=== PATIENT | female | born 1995 | race Caucasian/White ===

== ENCOUNTER 2017-02-25 15:53 | Inpatient (IN) ==
[2017-02-25] MEDS ORDERED: ONDANSETRON 4 MG/2 ML VIAL IV PRN ×2 (16:26→18:29)
[2017-02-25] MEDS ORDERED: HYDROmorphone 2 MG/1 ML VIAL IV PRN ×2 (16:26→18:29)
[2017-02-25] MEDS ORDERED: ACETAMINOPHEN 325 MG TABLET PO PRN (16:26)
--- NOTE | 2017-02-25 16:33 | General Surg History&Physical ---
Assessment and Plan - Time spent with patient Time spent with patient: Less than 30 minutes (1) Appendicitis Status: Acute Assessment and plan: Impression: Acute appendicitis with localized peritonitis. Plan: Laparoscopic appendectomy. Preoperative antibiotic Qualifiers: Appendicitis type: acute appendicitis Acute appendicitis type: with localized peritonitis Qualified Code(s): K35.3 - Acute appendicitis with localized peritonitis (2) Cholelithiasis Status: Acute Assessment and plan: Impression: 1. Cholelithiasis. Plan: Patient has evidence of gallstones on her CT scan but has nothing that is consistent with any gallbladder symptoms at this point. Because of the acute appendicitis of felt is better just to do the appendix and not do anything with the gallbladder at this point for the risk of cross contamination. History of Present Illness Chief complaint: Abdominal pain right lower quadrant History of present illness: Ms. Linn is a 21 year old female white female who had the onset today of abdominal pain early this morning crampy in nature now centered with tenderness in the right lower quadrant. Had a little nausea and vomiting and the pain is persisted there. White count was 12,000 at this time and [place] when she was transferred down here. She had a CT scan abdomen and pelvis that was done down and put alert and is reported that she has changes suggestive of acute appendicitis with thickening and inflammatory changes around the appendix at this time. In addition she was noted to have some gallstones although she does not have any cysts symptoms consistent with gallbladder disease and certainly no fatty food intolerance. At this point I think we need to concentrate on the appendix plan to take her to surgery and get that out and then just observe her on the gallbladder dealing with that somewhere down the road if she has any symptoms associated with it. I would not do both at same time because of the risk of getting cross-contamination especially in the liver bed. Home Medications Medication Instructions Recorded Confirmed Type No Known Home Medications [No 02/25/17 02/25/17 History Known Home Medications] Allergies Allergy/AdvReac Type Severity Reaction Status Date / Time No Known Allergies Allergy Unverified 02/25/17 16:00 Medical,Surgical,& Family Hx - Medical History Medical History: noncontributory - Surgical History Surgical History: noncontributory - Social History Smoking Status: Never smoker Frequency of Alcohol Use: None Type of Drug Use: None Exam - Constitutional Vitals: Period Temp Pulse Resp BP Sys/Amado Pulse Ox Last 24 Hr 99.0 F-99.0 F 86-86 18-18 107-107/66-66 100 General appearance: mild distress - Head Head exam: Present: normal inspection - ENT ENT exam: Present: normal exam - Neck Neck exam: Present: normal inspection - Respiratory Respiratory exam: Present: clear to auscultation bilaterally, rales - Cardiovascular Cardiovascular exam: Present: RRR - GI/Abdominal GI/Abdominal exam: Present: guarding (Right lower quadrant), hypoactive bowel sounds, tenderness (Right lower quadrant with guarding), soft. Absent: distended - Extremities Exam Extremities exam: Present: normal inspection - Back Exam Back exam: Present: normal inspection - Neurological Exam Neurological exam: Present: alert, oriented X3, CN II-XII intact - Skin Skin exam: Present: normal color, warm, dry 12 point system: reviewed and no additional remarkable complaints except as stated Quality Measures - VTE Contraindication to Pharmacological VTE Prophylaxis: High Risk of Bleeding Results - Labs Lab Results: I have reviewed the past 24 hour labs - Diagnostic Findings Procedure: CT Abdomen and Pelvis: report reviewed by me (Evidence of acute appendicitis)
--- NOTE | 2017-02-25 16:49 | Event Note ---
Patient transfer to emergency room. Dr. Soto actually saw this patient did the history and physical on this patient and admitted the patient I am just documenting this because I signed up for the patient so we can put admit orders in in the emergency room. Please refer to Dr. Soto's history and physical and orders
[2017-02-25] MEDS ORDERED: BUPIVACAINE 0.25% 50 ML VIAL ONE (17:06)
[2017-02-25] MEDS ORDERED: LIDOCAINE 1%/EPI INJ 20 ML VIAL ONE (17:06)
[2017-02-25] MEDS ORDERED: metroNIDAZOLE 500 MG/100 ML PREMIX IV ONE (17:06)
[2017-02-25] MEDS: SODIUM CHLORIDE 0.45% 1,000 ML IV SCH ×2 (17:20→20:43)
--- NOTE | 2017-02-25 18:41 | Operative Note ---
Date of procedure: 02/25/17 Pre-op diagnosis: Possible appendicitis Post-op diagnosis: other (Acute appendicitis) Procedure: Operative note: Preoperative diagnosis: Abdominal pain probably secondary to acute appendicitis Postoperative diagnosis: Acute appendicitis without perforation Procedure: Laparoscopic appendectomy Surgeon Dr. Soto Anesthesia was general with local Brief history 21-year-old white female had the onset of abdominal pain crampy in nature this now localized in the right lower quadrant earlier today. Seen in [place] where a CT scan confirmed that she had appendicitis with a white count of 12,000. She was transferred here where we have elected to bring her to surgery for an appendectomy. He was noted on CT scan that she did have some gallstones but did not think it was german to do anything with the gallbladder since by history she seem to be totally asymptomatic from it. Procedure: With patient in supine position prepped and draped in a sterile fashion timeout and antibiotics completed approaches area of the abdomen just above the umbilicus. Infiltrated with a local anesthetic made incision through the skin subtenons tissue with a knife calf dissected down to the fascia. She was very deep but we got down to the fascia and incised the fascia had elevated up with hemostats before I can get into the peritoneal cavity under direct vision. Then placed a 5 mm trocar in and instilled 3 L of CO2 into the abdomen. We next put the scope and looked around for I can see looking good shape at this point time there is some adhesions in the right lower quadrant for some reason in that area. At this point with his see in the right lower quadrant the appendix appeared to be inflamed with a little sloughy material around it. At that point I then put her in Trendelenburg and placed a 5 mm hypogastric trocar in under direct vision. And we then tilted to the left side and we placed a 12 mm trocar in at the anterior axillary line under direct vision just above the level of the umbilicus. At that point I then used an atraumatic grasper in my dissector to lift up the appendix at this time. I did dissect some adhesions from the lateral wall over there to bring the appendix up a little bit better. Once that was freed and I was able go across the mesoappendix twice with the vascular Endo DEANDRE stapler and fire that. We then went across the base of the appendix with a blue Endo DEANRDE stapler fired it and removed the appendix. We then placed a swollen thickened appendix into the Endo Catch bag and brought up to the lateral port. Went back in washed and irrigated in the right lower quadrant look at her staple lines and they all look dry at this time. I then washed irrigated out the pelvis there just make sure had a good clean nothing else going on in that area. With that looking clean I then used a 0 Monocryl suture with an Endo Close system to close the right lateral port under direct vision. With that tied and secured and we pulled our other trochars with no bleeding from them. I then went back to the umbilical port where we closed that with interrupted 0 Monocryl suture under direct vision. With that closed and we washed out the subtenons tissue closed with 30 Vicryl Close the skin with skin clips. Dressings were applied and the patient taken recovery room. Estimated blood loss 10 cc Sponge count correct 2 Drains none Complications none Condition stable satisfactory Anesthesia: GETA, local (0.25% Marcaine with epinephrine mixed [id number] 1% Xylocaine plain) Surgeon / Physician: Phil Soto Estimated blood loss: other (10 cc) Specimens: other (Appendix) Condition: stable Discharge Plan - Discharge Medications No Action No Known Home Medications [No Known Home Medications] - Follow Up or Referral - Forms/Instructions
[2017-02-25] MEDS: metroNIDAZOLE INJ 500 MG in PREMIX 1 EACH IV SCH (20:42)
[2017-02-25] MEDS: KETOROLAC 15 MG/1 ML VIAL IV SCH ×2 (20:43→23:10)
[2017-02-26] MEDS: metroNIDAZOLE INJ 500 MG in PREMIX 1 EACH IV SCH ×3 (01:59→17:53)
[2017-02-26] MEDS: KETOROLAC 15 MG/1 ML VIAL IV SCH ×4 (05:56→21:53)
[2017-02-26 06:40] LABS: Basophils % 0.5 % (0.0-0.8); Eosinophils % 0.5 % (0.00-10.9); Hematocrit 35.1 VOL% (35.7-47.0); Hemoglobin 11.4 GM/DL (12.0-16.0); Immature Granulocytes % 0.2 %; Immature Granulocytes Absolute 0.01 #; Lymphocytes # 2.1 10*3/uL (1.4-4.0); Lymphocytes % 35.1 % (21.3-54.2); Mean Corpuscular HGB Conc 32.5 GM/DL (32-36); Mean Corpuscular Hemoglobin 30 PG (27-34); Mean Corpuscular Volume 91.9 FL (87-102); Mean Platelet Volume 10.7 FL (9.6-12.0); Monocytes # 0.5 10*3/uL (0.11-0.8); Monocytes % 8.1 % (1.7-12.7); Neutrophils # 3.3 10*3/uL (1.4-7.4); Neutrophils % 55.6 % (38.7-73.9); Platelet Count 263 T/CUMM (130-400); Red Blood Count 3.82 MC/CUMM (3.8-5.5); Red Cell Distribution Width 12.5 % (9.3-17.3)
[2017-02-26 07:06] LABS: Calcium 7.7 MG/DL (8.5-10.1); Osmolality,Calculated 279.1 MOS/KG (273-304)
[2017-02-26] MEDS ORDERED: PANTOPRAZOLE 40 MG VIAL IV SCH (09:00)
[2017-02-26] MEDS: PANTOPRAZOLE 40 MG TABLET PO SCH (09:31)
--- NOTE | 2017-02-26 10:06 | General Surgery Progress Note ---
Assessment and Plan (1) Appendicitis Status: Acute Assessment and plan: Impression: Acute appendicitis with localized peritonitis. Plan: Laparoscopic appendectomy. Preoperative antibiotic 02/26/2017. Patient is postop from an appendectomy yesterday and continues to do fairly well. She tolerated some liquids this morning I will try some solid food later today. She remains a little bit sore mild nausea but no vomiting at this time. There is some discomfort in the right lower quadrant area on palpation but bowel sounds are active at this time. We will plan to advance her diet but have her ambulate late little bit and possibly let her go home tomorrow as she is stable in and tolerated things well. Current Visit: Yes Qualifiers: Appendicitis type: acute appendicitis Acute appendicitis type: with localized peritonitis Qualified Code(s): K35.3 - Acute appendicitis with localized peritonitis (2) Cholelithiasis Status: Acute Assessment and plan: Impression: 1. Cholelithiasis. Plan: Patient has evidence of gallstones on her CT scan but has nothing that is consistent with any gallbladder symptoms at this point. Because of the acute appendicitis of felt is better just to do the appendix and not do anything with the gallbladder at this point for the risk of cross contamination. Current Visit: Yes Subjective Patient reports: Present: feels better, pain is less, tolerating liquids well, no bowel movement, afebrile Exam - Constitutional Vitals: Period Temp Pulse Resp BP Sys/Amado Pulse Ox Last 24 Hr 97.3 F-99.2 F 74-97 16-20 86-130/52-85 96-100 General appearance: mild distress - Head Head exam: Present: normal inspection - ENT ENT exam: Present: normal exam - Neck Neck exam: Present: normal inspection - Respiratory Respiratory exam: Present: clear to auscultation bilaterally, rales - Cardiovascular Cardiovascular exam: Present: RRR - GI/Abdominal GI/Abdominal exam: Present: hypoactive bowel sounds, tenderness (Some tenderness about the incisions a little bit in the right lower quadrant), soft, other (Incisions clean and dry) - Extremities Exam Extremities exam: Present: normal inspection - Back Exam Back exam: Present: normal inspection - Neurological Exam Neurological exam: Present: alert, oriented X3, CN II-XII intact - Skin Skin exam: Present: normal color, warm, dry Results - Labs CBC & BMP: 02/26/17 04:47 02/26/17 04:47 Lab Results: I have reviewed the past 24 hour labs Quality Measures - VTE Contraindication to Pharmacological VTE Prophylaxis: High Risk of Bleeding
--- NOTE | 2017-02-26 10:10 | Discharge Summary ---
Hospital Course - Hospital Course Hospital Course: Discharge summary: Discharge diagnosis: Abdominal pain secondary to acute appendicitis. Secondary diagnosis is gallstones asymptomatic Procedure: Laparoscopic appendectomy Surgeon Dr. Soto Brief summary: 21-year-old white female came in because abdominal pain that started suddenly and got progressively worse with radiation to the right lower quadrant area. CT is scan confirmed that she had appendicitis with swollen appendix with inflammatory changes present around it. Her white count was up to about 12,000 when she initially came to start on some IV antibiotics. CT also revealed that she had some gallstones but on questioning she did not have anything that was consistent with gallbladder disease at this time. It was felt best not to remove her do with the gallbladder wall where handling the appendix at this time because of infection. Patient was taken to the operating room we did laparoscopic appendectomy find in a swollen thickened appendix. She tolerated this very well without problems there is no obvious infection or purulence in the abdomen at this time. Abdomen was washed out. She did fairly well throughout the night this morning she had some mild nausea And her vital signs were stable. The abdomen is soft there is bowel sounds present but still little tender in the right lower quadrant area as would be expected. She will be advanced some solid food tolerating that well and get her ambulatory will probably let her go home on Wednesday. Will follow her up again in couple weeks get her clips out. - Time spent with patient Time with patient DS: Less than 30 minutes Diagnosis - Discharge Diagnosis (1) Appendicitis Status: Resolved (2) Cholelithiasis Status: Chronic Specialty Discharge - Follow Up or Referrals Follow up with: Phil Soto MD [Physician] - 2 Weeks Discharge Plan - Discharge Data Disposition: Disch To Home/Self Care Condition at Discharge: Stable Discharge Diet: advance to your usual diet Activity: increase activity as tolerated, no lifting, other (No straining) Hygiene: may shower Weight Bearing at Discharge: full weight bearing Driving: not for (1 week) Contact your physician if you experience:: fever over 101, Redness or swelling, Nausea/Vomiting, Shortness of breath, pain uncontrolled by pain medications Wound / Dressing Care Instructions: Continue wound care as ordered - Discharge Medications New Acetaminophen Tab [Tylenol Tab] 650 mg PO Q6H PRN tablet PRN Reason: Pain Mild (1-3) And/Or Fever HYDROcodone/ACETAMIN 7.5-325 [[place] 7.5-325] 1 tablet PO Q6H PRN #30 tablet PRN Reason: Pain Moderate (4-7) - Follow Up or Referral - Forms/Instructions Exam - Constitutional Vitals: Period Temp Pulse Resp BP Sys/Amado Pulse Ox Last 24 Hr 97.3 F-99.2 F 74-97 16-20 86-130/52-85 96-100 General appearance: mild distress - Head Head exam: Present: normal inspection - ENT ENT exam: Present: normal exam - Neck Neck exam: Present: normal inspection - Respiratory Respiratory exam: Present: clear to auscultation bilaterally - Cardiovascular Cardiovascular exam: Present: regular rate and rhythm - GI/Abdominal GI/Abdominal exam: Present: hypoactive bowel sounds, tenderness (About the incisions and the right lower quadrant), soft - Extremities Exam Extremities exam: Present: normal inspection - Back Exam Back exam: Present: normal inspection - Neurological Exam Neurological exam: Present: alert, oriented X3, CN II-XII intact - Psychiatric Psychiatric exam: Present: normal affect, normal mood, anxious - Skin Skin exam: Present: normal color, warm, dry Discharge Results Labs on day of discharge: Labs from last 24 hours 02/26/17 02/26/17 02/25/17 04:47 04:47 17:25 WBC 6.0 RBC 3.82 Hgb 11.4 L Hct 35.1 L MCV 91.9 MCH 30 MCHC 32.5 RDW 12.5 Plt Count 263 MPV 10.7 Neut % (Auto) 55.6 Lymph % (Auto) 35.1 Drew % (Auto) 8.1 Eos % (Auto) 0.5 Baso % (Auto) 0.5 Neut # (Auto) 3.3 Lymph # (Auto) 2.1 Drew # (Auto) 0.5 Eos # (Auto) 0.0 Baso # (Auto) 0.0 Immature Gran % 0.2 Nucleated RBC % 0.0 Immature Gran # 0.01 Nucleated RBCs # 0.00 Immature Plt Fraction 0.0 Sodium 142 Potassium 4.0 Chloride 111 H Carbon Dioxide 23 Anion Gap 12.0 BUN 7 Creatinine 0.60 GFR Calculation 144 BUN/Creatinine Ratio 11.00 Glucose 73 L Calculated Osmolality 279.1 Calcium 7.7 L Urine Test Negative DS: Provider Date of admission: 02/25/17 16:26 Primary care physician: Carol Glover M.D. Attending physician on admission: Phil Soto MD Consults: 02/25/17 16:30 Consult to Anesthesiology [CONS] Routine Consulting Provider: Reason for Anesthesiology: Pre-op Clearance Discharging clinician: Phil Soto MD Expected date of discharge: 02/27/17
[2017-02-26] MEDS: SODIUM CHLORIDE 0.45% 1,000 ML IV SCH (13:04)
[2017-02-26] MEDS: ENOXAPARIN 40 MG/0.4 ML SYRINGE SUBCUT SCH (13:28)
[2017-02-27] MEDS: metroNIDAZOLE INJ 500 MG in PREMIX 1 EACH IV SCH ×2 (00:41→09:38)
[2017-02-27] MEDS: KETOROLAC 15 MG/1 ML VIAL IV SCH ×2 (04:33→10:43)
[2017-02-27] MEDS: PANTOPRAZOLE 40 MG TABLET PO SCH (09:38)
[2017-02-27] MEDS: ENOXAPARIN 40 MG/0.4 ML SYRINGE SUBCUT SCH (12:19)
[2017-02-27 12:32] VITALS: BP 107/82
--- NOTE | 2017-03-02 09:17 | Pathology Report from [facility] ---
[facility] [place] ACCESSION # : [id number] PATIENT NAME : Cristal Linn ORDERING DR : ROBERT KRAUS MD CLINICAL HX: Appendicitis POST-OP DX: Same SPECIMEN INFO: Appendix GROSS DESCRIPTION: Received in formalin labeled CRISTAL LINN & APPENDIX is an appendix measuring 6.5 x 0.8 cm. The serosa is louie with exudate noted. The lumen is patent with no fecaliths or perforations seen. Rig Welder sections are submitted in one cassette. DIAGNOSIS FOR CRISTAL LINN: APPENDIX, APPENDECTOMY: Severe, acute necrotizing appendicitis with marked serositis. COLLECTED DATE: 02/26/2017 [facility] [place] REPORT DATE: 03/01/2017 ELECTRONICALLY SIGNED BY: Lelia Arce M.D. 03/01/2017 - 9:14:15 [facility] SHOREUlises
== END 2017-02-27 15:14 | disposition home or self-care (01) | DRG 340 ==
LOC: EDUNIT# → EDBD → N.ED 15:53 → N.EDINP 16:26 → N.3E 17:30
PROVIDERS: ADMIT Specialist; ATTEND Specialist